=== PATIENT | male | born 1960 | race Caucasian/White ===

== ENCOUNTER → 2017-08-29 | Outpatient (CLI) | payer BC ==
[~2017-08-29] MED LIST: ASPIRIN 81MG TA81 MG PO; CLOPIDOGREL75 M2 PO; LISINOPRIL2.5 M1 PO; LOPRESSOR 25MG.25 MG PO; RANITIDINE HCL150 MG PO; SIMVASTATIN40 MG PO
== END ==
LOC: RT 13:09
DX: G47.33 Obstructive sleep apnea (adult) (pediatric) (principal); G47.10 Hypersomnia, unspecified; R06.83 Snoring; R00.1 Bradycardia, unspecified; I10 Essential (primary) hypertension; E78.5 Hyperlipidemia, unspecified; I25.10 Atherosclerotic heart disease of native coronary artery without angina pectoris